=== PATIENT | female | born 1970 | race Caucasian/White ===

== ENCOUNTER 2016-06-21 01:58 | Emergency (ER) | payer OTHER ==
[~2016-06-21 01:58] MED LIST: ACTOS30 MG PO; ALPRAZOLAM PO; BACTRIM DS TABL1 TA1 PO; BACTRIM DS TABL1 TAB PO; CETIRIZINE HCL10 MG PO; CLEOCIN; CLEOCIN PO; CLEOCIN150 MG PO; CLINDAMYCIN HC300 MG PO; CLONAZEPAM0.5 MG PO; COLACE PO; DAKIN S TOP; DAPTOMYCIN IV; DICLOFENAC PO; DIFLUCAN PO; GLUCOPHAGE XR500 MG PO; GLUCOPHAGE500 MG PO; GLUCOPHAGE850 MG; HYDROCODON-ACE1 EAC1; HYDROCODON-ACE1 EAC1 PO; HYDROCODON-ACE1 EAC5 PO; IBUPROFEN PO; KEFLEX PO; KEFLEX500 MG PO; KLONOPIN0.5 MG; LEVOTHYROXINE100 MCG PO; LEVOXYL125 MC1; LIORESAL10 MG PO; LISINOPRIL PO; LISINOPRIL-HCTZ1 T14 PO; LISINOPRIL20 MG; LOPRESSOR PO; LORTAB 10-5001 EACH PO; LORTAB 5-325 M1 EACH PO; LORTAB 7.5-5001 TAB PO; METFORMIN HCL500 M1 PO; METFORMIN PO; METOPROLOL TAR25 MG PO; METOPROLOL TART25 MG PO; MIRALAX17 GM PO; NAPROSYN500 MG PO; OMEPRAZOLE20 M1 PO; PAROXETINE HCL40 M1; PAROXETINE HCL40 M1 PO; PAROXETINE HCL40 MG PO; PAXIL PO; PRILOSEC PO; PRILOSEC20 M1 PO; PRILOSEC20 MG; PROAIR HFA PO; PROAIR HFA8.5 GM IH; PROAIR HFA8.5 GM INH; PROAIR INH; REGLAN PO; SENNA S TABLET1 TAB PO; SEPTRA DS PO; SIMVASTATIN20 MG PO; SYNTHROID PO; ULTRAM PO; VICODIN 5/500 T1 TAB PO; VOLTAREN75 MG PO; XOPENEX HFA15 GM NEB; ZOCOR PO; ZOCOR20 MG; ZOCOR20 MG PO; ZOSYN IV; ZYRTEC PO; ZYRTEC10 M2 PO; ZYVOX600 MG PO
== END 2016-06-21 03:16 | disposition home or self-care (01) ==
LOC: CED 01:58
DX: K14.8 Other diseases of tongue (principal); T50.905A Adverse effect of unspecified drugs, medicaments and biological substances, initial encounter; I10 Essential (primary) hypertension; K21.9 Gastro-esophageal reflux disease without esophagitis; E11.9 Type 2 diabetes mellitus without complications; J45.909 Unspecified asthma, uncomplicated; F41.9 Anxiety disorder, unspecified; Z88.0 Allergy status to penicillin; F17.210 Nicotine dependence, cigarettes, uncomplicated
CPT/HCPCS: 36415; 82947; 96361; 96374; 96375; 99284; J1200; J2930